=== PATIENT | male | born 1990 | race Caucasian/White ===

== ENCOUNTER 2017-09-04 19:43 | Emergency (ER) | payer SELFPAY ==
[~2017-09-04] VITALS: Ht 172.7 cm; Wt 75.0 kg
[2017-09-04 19:44] VITALS: BP 129/66; PULSE 75; RESP 16; TEMP 98.4; O2SAT 97
[2017-09-05] MEDS ORDERED: BACT800T5 PO (00:42)
--- NOTE | 2017-09-05 00:45 | PD ---
HPI Chief Complaint: Abdominal Pain Time Seen by Provider: 23:52 Travel History International Travel<30 days: No Contact w/Intl Traveler<30days: No Traveled to known affect area: No History of Present Illness HPI This patient complains of some irritation and bumps at the base of the penis. Duration 3-4 days. No fever or urethral drainage PFSH Past Medical History Medical History: Denies Significant Hx Influenza Vaccination: Yes Past Surgical History Surgical History: No Previous Surgery Social History Alcohol Use: No Tobacco Use: Yes Substance Use: No Allergies-Medications Reported Meds & Prescriptions Reported Meds & Active Scripts Active Bactrim DS (Sulfamethoxazole-Trimethoprim) 800-160 Mg Tab 1 Tab PO BID Review of Systems General / Constitutional: No: Fever HENT: No: Headaches Cardiovascular: No: Chest Pain or Discomfort Physical Exam Narrative GASTROINTESTINAL: Abdomen soft, non-tender, nondistended. Positive bowel sounds. No hepato-splenomegaly, or palpable masses. No guarding. : Uncircumcised penis. There is several erythematous bumps at the base the penis. It looks like folliculitis from shaving likely. Data Data Last Documented VS Vital Signs Date Time Temp Pulse Resp B/P (MAP) Pulse Ox O2 Delivery O2 Flow Rate FiO2 09/04/17 19:44 98.4 75 16 129/66 (87) 97 Room Air MDM Medical Decision Making Medical Screen Exam Complete: Yes Emergency Medical Condition: Yes Medical Record Reviewed: Yes Differential Diagnosis Folliculitis, HSV, abscess Narrative Course I have reviewed the patient's electronic medical record. Presentation seems most consistent with folliculitis I wrote Bactrim for 1 week Recommend he stop shaving Diagnosis Primary Impression: Folliculitis Additional Instructions: The patient was advised to follow up with their physician and return if they worsen. Med/Other Pt SpecificInfo: Prescription(s) given Scripts Sulfamethoxazole-Trimethoprim (Bactrim DS) 800-160 Mg Tab 1 TAB PO BID for Infection, #14 TAB 0 Refills Prov: Amanuel Pereira MD 09/05/17 Disposition: 01 DISCHARGE HOME Condition: Stable Amanuel Pereira MD Sep 05, 2017 00:45
== END 2017-09-05 01:21 | disposition home or self-care (01) ==
LOC: NEPD 19:43
DX: L73.9 Follicular disorder, unspecified (principal)
CPT/HCPCS: 99283